=== PATIENT | male | born 1985 | race African-American/Black ===

== ENCOUNTER 2017-08-25 09:11 | Emergency (ER) | payer SELFPAY ==
[2017-08-25] MEDS: IV NORMAL SALINE 1000ML BAG 1,000 ML IV ×4 (09:32→10:31)
[2017-08-25] MEDS: LIDO:MAALOX:DONNATAL 1:1:1 15 ML SINGLE DOSE SWSW ×2 (09:35)
[2017-08-25 09:36] LABS: ADD MAN DIFF? NO
[2017-08-25 09:41] LABS: BASO # 0.1 x10^3/uL (0.0-0.2); BASO % 1 % (0-3); EOS % 0 % (0-3); HEMATOCRIT 45.8 % (39.0-53.0); HEMOGLOBIN 15.1 g/dL (13.0-17.5); LYMPH # 1.9 x10^3/uL (1.0-4.8); LYMPH % 28 % (24-48); MEAN CORPUSCULAR HEMOGLOBIN 29 pg (25-35); MEAN CORPUSCULAR HGB CONC 33 g/dL (31-37); MEAN CORPUSCULAR VOLUME 86 fL (79-100); MONO # 0.8 x10^3/uL (0.0-1.1); MONO % 11 % (0-9); NEUT % 59 % (31-73); PLATELET COUNT 210 x10^3/uL (140-400); RED CELL DISTRIBUTION WIDTH 12.9 % (11.5-14.5); WHITE BLOOD COUNT 6.7 x10^3/uL (4.0-11.0)
[2017-08-25 09:57] LABS: ANION GAP 8 (6-14); BLOOD UREA NITROGEN 5 mg/dL (8-26); CALCIUM 8.9 mg/dL (8.5-10.1); CARBON DIOXIDE 30 mmol/L (21-32); CHLORIDE 101 mmol/L (98-107); GFR 86.6; GLUCOSE 119 mg/dL (70-99); POTASSIUM 3.4 mmol/L (3.5-5.1); SODIUM 139 mmol/L (136-145)
[2017-08-25 10:02] LABS: ALK PHOS 46 U/L (46-116); ALT (SGPT) 32 U/L (16-63); AST (SGOT) 30 U/L (15-37); DIRECT BILIRUBIN 0.1 mg/dL (0.0-0.2); LIPASE 99 U/L (73-393); MAGNESIUM 1.9 mg/dL (1.8-2.4); TOTAL BILIRUBIN 0.2 mg/dL (0.2-1.0); TOTAL PROTEIN 7.9 g/dL (6.4-8.2)
[2017-08-25 10:04] LABS: NT-PRO BNP 14 pg/mL (0-124)
[2017-08-25 10:04] LABS: CKMB INDEX 0.3 % (0-4); CKMB MASS 2.1 ng/mL (0.0-3.6); CREATINE KINASE 814 U/L (39-308)
[2017-08-25 10:07] LABS: ETHANOL 146 mg/dL (0-10); TROPONINI < 0.017 ng/mL (0.000-0.055)
[2017-08-25 10:34] LABS: BILIRUBIN,URINE NEGATIVE (NEG); CLARITY,URINE CLEAR; COLOR,URINE YELLOW; GLUCOSE,URINE NEGATIVE (NEG); NITRITE,URINE NEGATIVE (NEG); PH,URINE 6.5; PROTEIN,URINE NEGATIVE (NEG-TRACE); UROBILINOGEN,URINE 0.2 mg/dL (0.2 mg/dL)
[2017-08-25 10:41] LABS: BARBITURATES NEG (NEG); BENZODIAZEPINES NEG (NEG); CANNABINOIDS NEG (NEG); COCAINE POS (NEG); METHADONE NEG (NEG); OPIATES NEG (NEG); PHENCYCLIDINE NEG (NEG)
[2017-08-25 10:43] LABS: AMPHETAMINE/METHAMPHETAMINE NEG (NEG); BACTERIA,URINE 0 /HPF (0-FEW); ETHANOL, URINE POS (NEG); RBC,URINE 0 /HPF (0-2); WBC,URINE OCC /HPF (0-4)
[2017-08-25 11:18] LABS: D-DIMER < 0.27 ug/mlFEU (0.00-0.50)
== END 2017-08-25 11:52 | disposition home or self-care (01) ==
LOC: ER 09:11
DX: F14.10 Cocaine abuse, uncomplicated (principal); R07.89 Other chest pain; R00.0 Tachycardia, unspecified
CPT/HCPCS: 36415; 71045; 80048; 80076; 80307; 81001; 82553; 83690; 83735; 83880; 84484; 85025; 85379; 93005; 96360; 96361; 99285-25; G0480; J7030